=== PATIENT | male | born 1975 | race Caucasian/White ===

== ENCOUNTER 2017-01-21 20:13 | Emergency (ER) | payer SELFPAY ==
[2017-01-21] MEDS ORDERED: NITROGLYCERIN OINT 2% 1 INCH PACKET TP ONE (20:26)
[2017-01-21] MEDS ORDERED: NITROGLYCERIN OINT 2% 1 INCH PACKET TP STA (20:29)
--- NOTE | 2017-01-21 21:35 | ED Physician Chart ---
ED Chief Complaint/HPI - Patient Information Date Seen:: 01/21/17 Time Seen:: 20:15 Chief Complaint:: Facial Numbness History of Present Illness:: onset x 3 days of intermittent sinus regional H/As, paresthesias, toothaches, chin numbness, and congestion; no trauma, neck pain, C/P, SOB, Abd. 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:: Allergies Allergy/AdvReac Type Severity Reaction Status Date / Time No Known Allergies Allergy Verified 01/21/17 20:35 Vitals:: Vital Signs - 8 hr 01/21/17 01/21/17 01/21/17 20:15 20:38 21:07 Temp 97.5 F HR 102 102 89 RR 18 BP 152/111 152/111 137/91 O2 Sat % 95 Historian:: Patient Review:: Nurse's Note Reviewed ED Review of Systems - Review of Systems General/Constitutional: No fever, No chills, No weight loss, No weakness, No diaphoresis, No edema, No loss of appetite Skin: No skin lesions, No rash, No bruising Head: No headache, No light-headedness Eyes: No loss of vision, No pain, No diplopia ENT: No earache, Nasal drainage, No sore throat, No tinnitus Neck: No neck pain, No swelling, No thyromegaly, No stiffness, No mass noted Cardio Vascular: No chest pain, No palpitations, No PND, No orthopnea, No edema Pulmonary: No SOB, No cough, No sputum, No wheezing GI: No nausea, No vomiting, No diarrhea, No pain, No melena, No hematochezia, No constipation, No hematemesis G/U: No dysuria, No frequency, No hematuria Musculoskeletal: No bone or joint pain, No back pain, No muscle pain Endocrine: No polyuria, No polydipsia Psychiatric: No prior psych history, No depression, No anxiety, No suicidal ideation, No homicidal ideation, No auditory hallucination, No visual hallucination Hematopoietic: No bruising, No lymphadenopathy Allergic/Immuno: No urticaria, No angioedema Neurological: No syncope, No focal symptoms, No weakness, Paresthesia, Headache , No seizure, No dizziness, No confusion, No vertigo ED Past Medical History - Past Medical History Obtainable: Yes Past Medical History: No significant medical hx Family History: HTN Social History: Non Smoker, No Alcohol, No Drug Use, Surgical History: None Psychiatricy History: None Medication: Reviewed Family Medical History - Family Member Mother Ethnicity: Living Status: Still Living ED Physical Exam - Physical Examination General/Constitutional: Awake, Well-developed, well-nourished, Alert, No distress, GCS 15, Non-toxic appearing, Ambulatory Head: Atraumatic Eyes: Lids, conjuctiva normal, PERRL, EOMI Skin: Nl inspection, No rash, No skin lesions, No ecchymosis, Well hydrated, No lymphadenopathy ENMT: External ears, nose nl, TM canals nl, Nasal exam nl, Lips, teeth, gums nl , Oropharynx nl, Tonsils nl Other ENMT comments:: + Maxillary Sinus Regional Tenderness; + Nasal Congestion Neck: Nontender, Full ROM w/o pain, No JVD, No nuchal rigidity, No bruit, No mass, No stridor Other Neck comments:: Supple; no meningeal signs; no cervical tenderness; no bruits Respiratory: Nl effort/Exclusion, Clear to Auscultation, No Wheeze/Rhonchi/Rales Cardio Vascular: RRR, No murmur, gallop, rubs, NL S1 S2, Carotid/Femoral/Distal pulses equal bilaterally GI: No tenderness/rebounding/guarding, No organomegaly, No hernia, Normal BS's, Nondistended, No mass/bruits, No McBurney tenderness : No CVA tenderness Extremities: No tenderness or effusion, Full ROM, normal strength in all extremities, No edema, Normal digits & nails Neuro/Psych: Alert/oriented, DTR's symmetric, Normal sensory exam, Normal motor strength, Judgement/insight normal, Mood normal, Normal gait, No focal deficits Misc: Normal back, No paraspinal tenderness ED Labs/Radiology/EKG Results - Radiology Results Comments:: + Sinusitis ED Septic Shock - . Is Septic Shock (SBP<90, OR Lactate>4 mmol\L) present?: No - <6hrs of presentation: Vital Signs: Vital Signs - 8 hr 01/21/17 01/21/17 01/21/17 20:15 20:38 21:07 Temp 97.5 F HR 102 102 89 RR 18 BP 152/111 152/111 137/91 O2 Sat % 95 ED Reassessment (Disposition) - Reassessment Reassessment:: pt's BP decreased to 135/85; pt tolerated po fluids well in ER; pt is asymptomatic upon discharge Reassessment Condition:: Improved - Diagnosis Diagnosis:: Dx: Sinusitis; Sinus Headaches; Hypertension; Facial/Chin Paresthesias; Nasal Congestion; URI - Aftercare/Follow up Instructions Aftercare/Follow-Up Instructions:: Counseled pt regarding lab results/diagnosis & need follow up, Refer to Discharge Instructions, Counseled pt & family regarding lab results/diagnosis & need follow up Medication Prescribed:: Rx: Amoxicillin 500mg po tid x 10 days; Tylenol 500mg po qid prn headaches/fever ; Cool Mist Vaporizer; No Added Salt Diet; take medications as prescribed - Patient Disposition Discharge/Transfer:: Home Condition at Disposition:: Stable, Improved (RTER prn if existing s/s reoccur and/or get worse and/or any other new s/s occur; Have Blood Pressure Re-Checked in one day; ACIs given for all above Dx; X-Rays Instructions; Refer to 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
--- NOTE | 2017-01-22 08:19 | Diagnostic Imaging Report ---
Head CT without intravenous contrast Indication: pain Comparison: None Technique: Axial images were obtained from the vertex to the skull base without IV contrast. Coronal reconstructions were made. Total DLP: 559, CTDI31 FINDINGS: Images of the brain obtained without contrast demonstrate no acute hemorrhage. No mass lesions identified. The ventricles and basal cisterns are patent. The yang-white matter differentiation is preserved. There is no mass effect or midline shift. No skull fractures identified. No soft tissue swelling. IMPRESSION: No acute intracranial abnormality.
--- NOTE | 2017-01-22 08:24 | Diagnostic Imaging Report ---
CT maxillofacial without IV contrast HISTORY: Facial weakness, paresthesia, headaches COMPARISON: Head CT the same day Technique: Axial images of the maxillofacial bones were obtained without IV contrast. Reconstructions were made. total DLP: 330, CTDI18 Findings: There is complete opacification of the left maxillary sinus with high density. There appear to be evidence of previous surgery along the bilateral maxillary sinus regions. There is generalized mucosal thickening in the paranasal sinus. Small mucous retention cyst was follow-up of left maxillary sinus is noted measuring 8 Deviated nasal septum is noted. The bilateral orbital floors are intact. The globes and intraconal compartments are intact. The bilateral zygomatic arches are intact. The TMJ joints are intact. Old nasal fractures are noted. No evidence of an acute fracture. IMPRESSION: Left maxillary sinusitis with complete opacification and high density which may be due to chronic sinusitis with inspissated secretions. Postsurgical changes of bilateral maxillary sinus region are noted. Please clinically patient's clinical and surgical history. Additional mucosal thickening of paranasal sinuses with small mucous retention cyst versus polyp of right maxillary sinus.
== END 2017-01-21 21:20 | disposition home or self-care (01) ==
LOC: ER 20:13
DX: R20.2 Paresthesia of skin (principal); J32.9 Chronic sinusitis, unspecified; I10 Essential (primary) hypertension; J06.9 Acute upper respiratory infection, unspecified; R09.81 Nasal congestion
CPT/HCPCS: 70450-TC; 70486-TC; Z7502